=== PATIENT | male | born 1980 | race African-American/Black ===

== ENCOUNTER 2023-05-12 11:40 | Emergency (ER) | payer MEDICAID ==
[~2023-05-12] VITALS: Ht 165.1 cm; Wt 64.0 kg
[2023-05-12 11:56] VITALS: O2SAT 97
[2023-05-12 13:37] LABS: BASOPHILS % 0.7 % (0.0-2.0); EOSINOPHILS % 5.8 % (0.0-5.0); HEMATOCRIT. 40.6 % (42.0-52.0); HEMOGLOBIN. 13.3 g/dL (14.0-18.0); LYMPHOCYTES % 39.7 % (20.0-50.0); MEAN CORPUSCULAR HGB CONC 32.8 g/dL (31.0-37.0); MEAN CORPUSCULAR VOLUME 91.3 fL (80.0-94.0); MEAN PLATELET VOLUME 9.5 fl (7.4-10.4); MONOCYTES % 8.1 % (2.0-8.0); NEUTROPHILS % 45.7 % (40.0-76.0); PLATELET 271 x1000/uL (130-400); RED BLOOD CELL COUNT 4.44 mill/uL (4.7-6.1); RED CELL DISTRIBUTION WIDTH 13.5 % (11.6-14.6); WHITE BLOOD COUNT 5.5 x1000/uL (4.5-11.0)
[2023-05-12 14:41] LABS: ACETAMINOPHEN < 2 ug/mL (10-30); ALANINE AMINOTRANSFERASE 17 IU/L (10-49); ALBUMIN 3.5 g/dL (3.2-4.8); ASPARTATE AMINOTRANSFERASE 18 IU/L (<34); BILIRUBIN TOTAL 0.7 mg/dL (0.1-1.0); CALCIUM 8.9 mg/dL (8.7-10.4); CARBON DIOXIDE 30 mEq/L (21-32); CHLORIDE 105 mEq/L (98-107); CREATININE 0.8 mg/dL (0.6-1.3); GLUCOSE 160 mg/dL (70-105); POTASSIUM 3.6 mEq/L (3.5-5.1); PROTEIN TOTAL 6.8 g/dL (6.0-8.3); SODIUM 142 mEq/L (136-145); UREA NITROGEN BLOOD 12 mg/dL (9-23)
[2023-05-12 14:45] LABS: ETHANOL BLOOD < 10 mg/dL (<10)
[2023-05-12 21:54] LABS: CLARITY URINE CLEAR (CLEAR); COLOR URINE YELLOW (YELLOW); GLUCOSE URINE NEGATIVE (NEGATIVE); KETONES URINE TRACE (NEGATIVE); LEUKOCYTE ESTERASE URINE NEGATIVE (NEGATIVE); NITRITE URINE NEGATIVE (NEGATIVE); OCCULT BLOOD URINE NEGATIVE (NEGATIVE); PH URINE 6.5 (4.5-8.0); PROTEIN URINE TRACE (NEGATIVE); SPECIFIC GRAVITY URINE 1.039 (1.005-1.030)
[2023-05-12 22:04] LABS: BACTERIA URINE TRACE; RBC URINE NONE SEEN /hpf (0-2); SQUAMOUS EPITHELIAL CELL URINE RARE /lpf (RARE/1+)
[2023-05-12 22:05] LABS: WBC URINE 0-2 /hpf (0-2)
[2023-05-12 22:11] LABS: *AMPHETAMINES SCREEN URINE PRESUMPTIVE POSITIVE (NEGATIVE); *BARBITURATES SCREEN URINE NEGATIVE (NEGATIVE); *BENZODIAZEPINES SCREEN URINE NEGATIVE (NEGATIVE); *COCAINE SCREEN URINE NEGATIVE (NEGATIVE); CANNABINOID URINE SCREEN NEGATIVE (NEGATIVE); ECSTASY MDMA SCREEN URINE NEGATIVE (NEGATIVE); METHADONE URINE SCREEN Neg (NEGATIVE); OPIATES URINE SCREEN NEGATIVE (NEGATIVE); PHENCYCLIDINE URINE SCREEN NEGATIVE (NEGATIVE)
[2023-05-13] MEDS ORDERED: OLANZAPINE 5MG TABLET ODT PO SCH (11:00)
[2023-05-13 12:00] VITALS: BP 130/91; PULSE 81; RESP 16; TEMP 97.7
== END 2023-05-13 13:30 ==
LOC: ER 12:18
DX: R45.851 Suicidal ideations (principal); Z20.822 Contact with and (suspected) exposure to COVID-19
CPT/HCPCS: 80053; 80305; 81003; 80307; 80329; 80320; 85025; 36415; 99285; 87426; C9803; G0480